=== PATIENT | male | born 1960 | race Caucasian/White ===

== ENCOUNTER 2019-03-10 23:30 | Inpatient (IN) | payer MEDICARE ==
[~2019-03-10] VITALS: Ht 175.3 cm; Wt 82.1 kg
[2019-03-11 00:35] VITALS: BP 116/77
[2019-03-11] MEDS ORDERED: HALOPERIDOL 5 MG TABLET PO PRN (00:45)
[2019-03-11 01:45] VITALS: BP 120/86
[2019-03-11] MEDS ORDERED: RISP2 PO (02:59)
[2019-03-11] MEDS ORDERED: RISP1 PO (02:59)
[2019-03-11 08:01] LABS: BASOPHILS % (AUTO) 0.4 % (0.0-2.0); HEMATOCRIT 43.7 % (41-53); HEMOGLOBIN 14.5 g/dL (13.5-17.5); LYMPHOCYTES % (AUTO) 19.8 % (22.0-44.0); MEAN CORPUSCULAR HEMOGLOBIN 27.6 pg (26.0-34.0); MEAN CORPUSCULAR HGB CONC 33.2 G/dL (31.0-37.0); MEAN CORPUSCULAR VOLUME 83 fL (80-100); MONOCYTES # (AUTO) 0.5 K/uL (0.1-1.0); MONOCYTES % (AUTO) 8.8 % (2.0-9.0); NEUTROPHILS # (AUTO) 3.6 K/uL (1.8-7.7); PLATELET COUNT (AUTO) 236 K/uL (150-450); RED BLOOD CELL COUNT(AUTO) 5.25 MIL/uL (4.50-5.90); RED CELL DISTRIBUTION WIDTH 14.9 % (11.5-14.5)
[2019-03-11 08:47] LABS: ALANINE AMINOTRANSFERASE 33 U/L (12-78); ALBUMIN 2.8 g/dL (3.4-5.0); ALKALINE PHOSPHATASE 77 U/L (46-116); ANION GAP 10 mmol/L (8-16); ASPARTATE AMINOTRANSFERASE 16 U/L (15-37); BILIRUBIN,TOTAL 0.5 mg/dL (0.1-1.0); CALCIUM, TOTAL 8.6 mg/dL (8.8-10.5); CARBON DIOXIDE 26 mmol/L (22-29); CHLORIDE 106 mmol/L (98-107); CHOL/HDL RATIO 5.6 (4.2-7.3); CHOLESTEROL 228 mg/dL (131-200); CREATININE 1.04 mg/dL (0.60-1.30); FREE T4 (FREE THYROXINE) 0.95 ng/dL (0.76-1.46); GLOMERULAR FILTR. RATE CALC > 60 mL/min (>60); GLUCOSE,RANDOM 75 mg/dL (70-110); HDL CHOLESTEROL 41 mg/dL (40-60); LDL CHOL (CALC.) 144 mg/dL (0-130); SODIUM SERUM 142 mmol/L (136-145); THYROID STIMULATING HORMONE 0.76 uIU/mL (0.36-3.74); TOTAL PROTEIN, SERUM 5.5 g/dL (6.4-8.2); TRIGLYCERIDES 213 mg/dL (15-150); UREA NITROGEN, BLOOD 18 mg/dL (7-18)
[2019-03-11 08:55] VITALS: BP 107/67
[2019-03-11] MEDS: FLUoxetine HCL 20 MG CAPSULE PO SCH (12:05)
[2019-03-11 16:20] VITALS: BP 108/72
[2019-03-11] MEDS ORDERED: ACETAMINOPHEN 325 MG TABLET PO PRN (18:00)
[2019-03-11] MEDS ORDERED: IBUPROFEN 600 MG TABLET PO PRN (18:00)
[2019-03-11] MEDS: OLANZapine 5 MG TABLET PO SCH (20:35)
[2019-03-11] MEDS: LORazepam 2 MG TABLET PO PRN (20:35)
[2019-03-12 05:57] VITALS: BP 114/75
[2019-03-12 08:21] VITALS: BP 127/75
[2019-03-12] MEDS: FLUoxetine HCL 20 MG CAPSULE PO SCH (08:30)
[2019-03-12] MEDS: AMOX TR/POT CLAV 875 MG/125 MG TABLET PO SCH ×2 (09:33→16:41)
[2019-03-12 16:10] VITALS: BP 126/77
[2019-03-12] MEDS: LORazepam 2 MG TABLET PO PRN (16:41)
[2019-03-12] MEDS: OLANZapine 5 MG TABLET PO SCH (20:32)
[2019-03-12] MEDS: ZOLPIDEM TARTRATE 10 MG TABLET PO PRN (20:32)
[2019-03-13 01:52] VITALS: BP 136/66
[2019-03-13 08:24] VITALS: BP 102/81
[2019-03-13] MEDS: AMOX TR/POT CLAV 875 MG/125 MG TABLET PO SCH ×2 (08:46→16:48)
[2019-03-13] MEDS: FLUoxetine HCL 20 MG CAPSULE PO SCH (08:46)
[2019-03-13 14:06] VITALS: BP 113/83
[2019-03-13 16:07] VITALS: BP 113/83
[2019-03-13] MEDS: LORazepam 2 MG TABLET PO PRN (16:48)
[2019-03-13] MEDS: ZOLPIDEM TARTRATE 10 MG TABLET PO PRN (20:31)
[2019-03-13] MEDS: OLANZapine 10 MG TABLET PO SCH (20:31)
[2019-03-14 00:01] VITALS: BP 118/78
[2019-03-14 08:22] VITALS: BP 125/65
[2019-03-14] MEDS: AMOX TR/POT CLAV 875 MG/125 MG TABLET PO SCH ×2 (08:46→16:30)
[2019-03-14] MEDS: FLUoxetine HCL 20 MG CAPSULE PO SCH (08:47)
[2019-03-14 16:19] VITALS: BP 129/90
[2019-03-14] MEDS: OLANZapine 10 MG TABLET PO SCH (20:03)
[2019-03-15 06:27] VITALS: BP 133/79
[2019-03-15 08:33] VITALS: BP 139/87
[2019-03-15] MEDS: FLUoxetine HCL 20 MG CAPSULE PO SCH (08:59)
[2019-03-15 16:13] VITALS: BP 131/78
[2019-03-15] MEDS: OLANZapine 10 MG TABLET PO SCH (20:15)
[2019-03-16 06:14] VITALS: BP 128/78
[2019-03-16 07:54] LABS: AMPHET/METH SCREEN,URINE NEGATIVE (NEGATIVE); BARBITURATE SCREEN, URINE NEGATIVE (NEGATIVE); BENZODIAZEPINES SCREEN,URINE NEGATIVE (NEGATIVE); CANNABINOID SCREEN,URINE NEGATIVE (NEGATIVE); COCAINE SCREEN,URINE NEGATIVE (NEGATIVE); METHADONE SCREEN, URINE NEGATIVE (NEGATIVE); OPIATE SCREEN,URINE NEGATIVE (NEGATIVE)
[2019-03-16 07:56] LABS: APPEARANCE,URINE CLEAR (CLEAR); BILIRUBIN,URINE NEGATIVE (NEGATIVE); GLUCOSE, URINE (UA) NEGATIVE (NEGATIVE); KETONES,URINE NEGATIVE (NEGATIVE); LEUKOCYTE ESTERASE ,URINE NEGATIVE (NEGATIVE); NITRATE,URINE NEGATIVE (NEGATIVE); OCCULT BLOOD,URINE NEGATIVE (NEGATIVE); PROTEIN,URINE NEGATIVE (NEGATIVE); UROBILINOGEN,URINE 0.2 mg/dL (<=1.0)
[2019-03-16 07:58] LABS: PHENCYCLIDINE SCREEN,URINE NEGATIVE (NEGATIVE)
[2019-03-16 08:15] VITALS: BP 134/68
[2019-03-16] MEDS: FLUoxetine HCL 20 MG CAPSULE PO SCH (09:23)
[2019-03-16 16:00] VITALS: BP 136/80
[2019-03-16] MEDS ORDERED: FLUO-191 PO (16:08)
[2019-03-16] MEDS ORDERED: OLAN10TA3 PO (16:08)
== END 2019-03-16 16:30 | disposition home or self-care (01) | DRG 885 ==
LOC: B3A 03-11 00:52
PROVIDERS: ADMIT Psychiatry & Neurology Psychiatry; ATTEND Psychiatry & Neurology Psychiatry
DX: F20.0 Paranoid schizophrenia (principal); Z59.0 Homelessness; Z79.899 Other long term (current) drug therapy; M17.11 Unilateral primary osteoarthritis, right knee; G89.29 Other chronic pain; E78.5 Hyperlipidemia, unspecified
CPT/HCPCS: 80307; 84439; 84443